=== PATIENT | female | born 1940 | race Caucasian/White ===

== ENCOUNTER → 2017-07-22 | Outpatient (CLI) | payer OTHER ==
[~2017-07-22] MED LIST: ALBU.5I INH; ALUM5LIQ PO; BISA10SU8 PR; CALC1TAB12 PO; DOCU1CAP39 PO; FENT25DI TD; FLEX10TA OR; HYDR-4197 PO; METO10TA PO; MILKSUS5 PO; MULTTAB67 PO; OXYB5TAB33 PO; PROT40TA PO; RED600TA PO; ZOLP10TA3 PO
== END ==
LOC: CPRE 11:21
PROVIDERS: ATTEND Orthopaedic Surgery Orthopaedic Surgery of the Spine
DX: M17.11 Unilateral primary osteoarthritis, right knee (principal)

== ENCOUNTER 2018-10-17 06:19 | Inpatient (IN) ==
[2018-10-17] MEDS ORDERED: Sodium Chlor 0.9% Inj 500 ML IV.CONT ONE (07:30)
[2018-10-17] MEDS ORDERED: Chlorhexidine 4% Topical 120 APPLIC/120 ML Bottle TOPICAL SCH (07:30)
[2018-10-17] MEDS ORDERED: Metoprolol Tartrate 25 MG Tablet PO ONE (07:30)
[2018-10-17] MEDS ORDERED: Chlorhexidine Gluconate 2% 1 Pack (2 Cloths) TOPICAL ONE (07:30)
[2018-10-17] MEDS ORDERED: SODIUM CHLOR 0.9% IV.SIG SCH (08:00)
[2018-10-17] MEDS ORDERED: Sodium Chlor 0.9% Inj 40 ML, Bupivacaine Liposo PF 1.3% Inj 20 ML, Bupivacaine/Epi PF 0... P-ARTICULR SCH ×3 (08:00)
[2018-10-17] MEDS ORDERED: ceFAZolin 2 GM Premix Inj 2 GM/50 ML PIGGYBACK IV.SIG SCH (08:00)
[2018-10-17] MEDS ORDERED: TRANEXAMIC ACID IV.SIG SCH (08:00)
[2018-10-17] MEDS ORDERED: Vancomycin Inj 1,000 MG in Sodium Chlor 0.9% Inj 250 ML IV.SIG SCH (08:00)
[2018-10-17] MEDS ORDERED: Bupivacaine 0.5% Inj 50 ML MDV Vial ONE (08:09)
[2018-10-17] MEDS ORDERED: Propofol Inj 500 MG/50 ML Vial ONE (08:26)
[2018-10-17] MEDS ORDERED: Morphine Inj 4 MG/ML Vial IV.PUSH PRN (09:40)
[2018-10-17] MEDS ORDERED: Bisacodyl 10 MG Supp RECTAL PRN (09:40)
[2018-10-17] MEDS ORDERED: Post-op Orders (for Pharmacy) OTHER STA (09:40)
--- NOTE | 2018-10-17 11:37 | P.OP ---
- Preoperative Diagnosis (1) Osteoarthritis of right knee (2) Valgus deformity, not elsewhere classified, right knee - Postoperative Diagnosis (1) Osteoarthritis of right knee (2) Valgus deformity, not elsewhere classified, right knee Date of procedure: 10/17/18 Procedure: Right total knee arthroplasty, posterior stabilized Anesthesia: regional, local, spinal Surgeon: Derrick Astudillo MD Spa Receptionist: Jessica Schaefer PA-C Operation and Findings: EBL: 50 cc INDICATION: This patient presents with long-standing arthritis of the knee. Attachment record documents conservative measures. The patient now presents for surgical treatment. NOTE: Jessica Schaefer PA-C was present for the entire surgical procedure as my paraprofessional education assistant. In my medical opinion her skill and care was necessary for proper management of this patient. TOURNIQUET TIME: 75 minutes COMPANY: [employer] FEMUR: Size 6, posterior stabilized TIBIA: Size 4, fixed-bearing PATELLA: 35 mm POLYETHYLENE INSERT: 11 mm, size 4 PROCEDURE: This patient was brought the operating room and anesthetized in the supine position. The patient was positioned supine on the table. The tourniquet was placed about the thigh, and the leg was scrubbed with alcohol followed by Hibiclens followed by ChloraPrep and draped sterilely. A timeout was done, and antibiotics were given. After exsanguination the tourniquet was inflated to 250 mmHg. An anterior incision was made and a median parapatellar arthrotomy was performed. The patella was released laterally and subluxed allowing freehand cut of the patella which was then sized. A metal cap was placed over the exposed patellar surface for protection. A check pilot hole was placed in the distal femur allowing a 4 valgus cut removing 11 mm from the distal femur. Anterior posterior and chamfer cuts were made. We needed to downsize the femur from a 726. We translated the femoral component anteriorly 3 mm. Some of this was because we removed 11 from the distal femur because of the valgus deformity of the distal femur. That allowed 1 mm from the lateral side. The posterior stabilize osteotomy was made. The attention was directed to the tibia. Retractors were positioned. The external alignment guide was used allowing the lateral tibia to be used as referencing guide and cut utilizing an oscillating saw taking care to avoid any injury to the surrounding soft tissues. This was sized properly. Trial reduction showed that the insert fit nicely. The patient had range of motion extension 0 flexion 125. A medial release was not necessary. The bony surfaces prepared. On the back table 2 packets of methylmethacrylate were mixed. The components were cemented. Excess cement was removed. The tourniquet let down and hemostasis was controlled. The final plastic insert was inserted. Range of motion was the same as previously noted. A drain was brought through a separate stab incision. The arthrotomy was repaired with interrupted #1 Vicryl suture, subcutaneous tissue 2-0 Vicryl suture and skin with metallic shima A sterile dressing was applied. Sponge counts, needle counts and instrument counts were all correct. The patient tolerated procedure well and was taken to recovery in satisfactory condition. FINDINGS: There was a hypoplastic lateral femoral condyle. The final components fit very nicely. The range of motion was excellent. There is no instability.
--- NOTE | 2018-10-17 11:45 | P.DCO ---
- Physical Therapy Physical Therapy: Gait training Knee: Total knee, Protocol: Right, Full weight bearing Canvas Knee Splint: Other (At nighttime for 4 weeks) Right Lower Extremity Weight Bearing: Weight bearing as tolerated Right Lower Extremity Range of Motion: Active ROM - Case Management Consult Case Management Consult-Home Health: Yes - Certification Need for Home Health services: I have seen patient Tammy Butler on 10/17/18. My clinical findings support the need for the requested home health care services because: Need for Home Health Services: High risk of falls Homebound Certification: I certify that my clinical findings support that this patient is homebound because: Homebound Certification: Unsteady gait/balance
--- NOTE | 2018-10-17 13:47 | XR ---
EXAM DATE: 10/17/2018 1:34 PM EST AGE/SEX: 78 years / Female INDICATIONS: Post op right knee surgery. CLINICAL DATA: This is the patient's initial encounter. Patient reports that signs and symptoms have been present for 1 day and indicates a pain score of 0/10. MEDICAL/SURGICAL HISTORY: None. None. COMPARISON: No prior exams available for comparison. FINDINGS: AP and lateral views of the right knee following recent total knee arthroplasty demonstrate cemented metallic hardware at the distal femur and proximal tibia with radiolucent patellar component. There i s soft tissue air, as expected. No significant joint effusion is identified. There is no fracture or dislocation. Skin shima are present anteriorly. No soft tissue abnormality is identified. CONCLUSION: Expected changes following recent right total knee arthroplasty. Electronically signed by: Allen Aponte MD Board Certified Radiologist 10/17/2018 1:46 PM EST
[2018-10-17] MEDS: ceFAZolin Inj 1 GM in Sodium Chlor 0.9% Inj 100 ML IV.SIG SCH ×2 (15:41→21:04)
[2018-10-17] MEDS ORDERED: Temazepam 15 MG Capsule PO PRN (21:00)
[2018-10-17] MEDS: Senna/Docusate Sodium 8.6/50 MG Tablet PO SCH (21:04)
[2018-10-17] MEDS: Multivitamin/Minerals Therapeutic Tablet PO SCH (21:04)
--- NOTE | 2018-10-18 00:48 | ECG ---
Date Performed: 10/17/2018 Time Performed: 07:23:30 PTAGE: 78 years EKG: Sinus rhythm WITH BASELINE ARTIFACT MINIMAL ST DEPRESSION ABNORMAL RHYTHM ECG NO PREVIOUS TRACING DOCTOR: Duncan Zamudio Interpretating Date/Time 10/18/2018 00:46:14
[2018-10-18] MEDS: ceFAZolin Inj 1 GM in Sodium Chlor 0.9% Inj 100 ML IV.SIG SCH (04:03)
[2018-10-18 05:30] LABS: Hematocrit 35.9 % (35.0-46.0); Hemoglobin 12.2 gm/dL (11.6-15.3)
[2018-10-18] MEDS: Senna/Docusate Sodium 8.6/50 MG Tablet PO SCH (08:01)
[2018-10-18] MEDS: Multivitamin/Minerals Therapeutic Tablet PO SCH (08:01)
[2018-10-18 08:03] VITALS: RESP 18
--- NOTE | 2018-10-18 12:56 | P.PNOP ---
Subjective Interval history: Doing well. Knee pain moderately controlled. The initial block 'was great' but then her pain increased this morning. NO new complaints. Questions about her knee dressings and discharge. Physical Exam Vital signs: Vital Signs 10/17/18 13:27 10/17/18 13:42 10/17/18 13:47 Temperature 97.5 F L 97.5 F L Pulse Rate 69 67 Respiratory Rate 20 18 Blood Pressure 113/55 L 130/63 Pulse Oximetry 94 L 95 10/17/18 14:34 10/17/18 16:00 10/17/18 16:29 Temperature 97.1 F L Pulse Rate 72 83 Respiratory Rate 18 20 18 Blood Pressure 126/60 124/59 L Pulse Oximetry 96 93 L 10/17/18 20:00 10/17/18 22:55 10/18/18 01:00 Temperature 97.6 F 97.1 F L Pulse Rate 81 73 Respiratory Rate 16 16 16 Blood Pressure 114/56 L 112/55 L Pulse Oximetry 93 L 94 L 10/18/18 04:00 10/18/18 08:02 Temperature 97.9 F Pulse Rate 64 Respiratory Rate 16 18 Blood Pressure 116/58 L Pulse Oximetry 92 L Intake & Output 10/17/18 10/18/18 10/18/18 18:59 06:59 18:59 Intake Total 1706.77 / 1706.77 1640 / 1640 Output Total 200 / 200 Balance 1506.77 / 1506.77 1640 / 1640 Weight 67.715 kg 67.7 kg Intake: IV 506.77 / 506.77 1100 / 1100 LR 1000 mL Inj 1,000 ML @ 80 1000 / 1000 mls/hr IV.CONT .[id number] [facility] Rx# :[id number] Cyklokapron Inj 677 MG In NS 106.77 / 106.77 Inj 100 ML @ 200 mls/hr IV.SIG JUDICIAL LAW CLERK [facility] Rx#:[id number] Vancomycin Inj 1,000 MG In NS 250 / 250 Inj 250 ML @ 250 mls/hr IV.SIG JUDICIAL LAW CLERK [facility] Rx#:[id number] Ancef 2 GM Premix Inj 2 gm In 50 / 50 50 ml @ 100 mls/hr IV.SIG JUDICIAL LAW CLERK [facility] Rx#:[id number] Ancef Inj 1 GM In NS Inj 100 ML 100 / 100 100 / 100 @ 200 mls/hr IV.SIG Q6H [facility] Rx #:[id number] Oral 200 / 200 540 / 540 Anesthesia Amount 1000 / 1000 Output: Urine 150 / 150 Estimated Blood Loss 50 / 50 Other: # Voids 1 2 Date of Last Bowel Movement 10/16/18 10/16/18 10/16/18 # Bowel Movements 0 Weight On Admission 67.7 kg Narrative: Sitting up in bed NAD RLE Knee dressing reapplied, no drainage, mild swelling, no erythema +motor at, +sens, +nvi Negative homans - Constitutional no acute distress Results - Labs CBC & Chem 7: 10/18/18 04:01 Laboratory Results - last 24 hr 10/18/18 04:01 Hgb 12.2 Hct 35.9 - Imaging Impressions Knee X-Ray 10/17/18 09:40 CONCLUSION: Expected changes following recent right total knee arthroplasty. - Procedures Right total knee arthroplasty Assessment and Plan - Ortho Post Op Day # 1 - Assessment and Plan pod#1 s/p R TKA Doing well. Pain fairly well controlled. Ok to d/c home w [facility] after PT today. Optifoam dressing applied. No drainage. Do not remove. PO pain meds as needed. ASA 81mg bid PT - WBAT RLE. TKA protocol. CKS at night. F/U in 2 weeks at [facility] as scheduled.
--- NOTE | 2018-10-18 12:56 | P.DS ---
Date of admission: 10/17/18 06:19 Primary care physician: Catalina Mae Attending physician on discharge: Derrick Astudillo Anticipated date of discharge: 10/18/18 DS: Medications - Discharge Medications Prescriptions: aspirin 81 mg PO BID 30 Days #60 tab hydrocodone-acetaminophen 1 tab PO Q4H PRN #42 tab PRN Reason: Acute Pain DS: Summary - Time Spent with Patient Total time spent providing and/or coordinating discharge services: - Quality: VTE Deep Vein Thrombosis/Pulmonary Embolism Present on Admission: No Exam Vital signs: Vital Signs 10/17/18 13:27 10/17/18 13:42 10/17/18 13:47 Temperature 97.5 F L 97.5 F L Pulse Rate 69 67 Respiratory Rate 20 18 Blood Pressure 113/55 L 130/63 Pulse Oximetry 94 L 95 10/17/18 14:34 10/17/18 16:00 10/17/18 16:29 Temperature 97.1 F L Pulse Rate 72 83 Respiratory Rate 18 20 18 Blood Pressure 126/60 124/59 L Pulse Oximetry 96 93 L 10/17/18 20:00 10/17/18 22:55 10/18/18 01:00 Temperature 97.6 F 97.1 F L Pulse Rate 81 73 Respiratory Rate 16 16 16 Blood Pressure 114/56 L 112/55 L Pulse Oximetry 93 L 94 L 10/18/18 04:00 10/18/18 08:02 Temperature 97.9 F Pulse Rate 64 Respiratory Rate 16 18 Blood Pressure 116/58 L Pulse Oximetry 92 L Intake & Output 10/17/18 10/18/18 10/18/18 18:59 06:59 18:59 Intake Total 1706.77 / 1706.77 1640 / 1640 Output Total 200 / 200 Balance 1506.77 / 1506.77 1640 / 1640 Weight 67.715 kg 67.7 kg Intake: IV 506.77 / 506.77 1100 / 1100 LR 1000 mL Inj 1,000 ML @ 80 1000 / 1000 mls/hr IV.CONT .[id number] [facility] Rx# :[id number] Cyklokapron Inj 677 MG In NS 106.77 / 106.77 Inj 100 ML @ 200 mls/hr IV.SIG AUDIO VISUAL EQUIPMENT RENTAL CLERK [facility] Rx#:[id number] Vancomycin Inj 1,000 MG In NS 250 / 250 Inj 250 ML @ 250 mls/hr IV.SIG AUDIO VISUAL EQUIPMENT RENTAL CLERK [facility] Rx#:[id number] Ancef 2 GM Premix Inj 2 gm In 50 / 50 50 ml @ 100 mls/hr IV.SIG AUDIO VISUAL EQUIPMENT RENTAL CLERK [facility] Rx#:[id number] Ancef Inj 1 GM In NS Inj 100 ML 100 / 100 100 / 100 @ 200 mls/hr IV.SIG Q6H [facility] Rx #:[id number] Oral 200 / 200 540 / 540 Anesthesia Amount 1000 / 1000 Output: Urine 150 / 150 Estimated Blood Loss 50 / 50 Other: # Voids 1 2 Date of Last Bowel Movement 10/16/18 10/16/18 10/16/18 # Bowel Movements 0 Weight On Admission 67.7 kg Results Procedures completed during hospitalization: Right total knee arthroplasty Labs on day of discharge: Labs from last 24 hours 10/18/18 04:01 Hgb 12.2 Hct 35.9 - Impressions ITS Impressions Knee X-Ray 10/17/18 09:40 CONCLUSION: Expected changes following recent right total knee arthroplasty. Discharge Plan - Discharge Disposition Patient Disposition: W/Home Health Service - Discharge Condition Condition: Good - Discharge Order Discharge Orders: Discharge Order (Routine); Ordered 10/17/18 Ordered By: Derrick Astudillo - Physicians Team Primary Care Provider: Catalina Mae Attending Provider: Derrick Astudillo - Rxs /Orders / Referrals /Forms Prescriptions: New aspirin 81 mg Tablet,Chewable 81 mg PO BID 30 Days Qty: 60 RF: 0 hydrocodone-acetaminophen 10-325 mg Tablet 1 tab PO Q4H PRN (Reason: Acute Pain) Qty: 42 RF: 0 Continue calcium carbonate-vitamin D3 [Calcium 600 + D(3)] 600 mg calcium- 200 unit Capsule 1 cap PO DAILY [id number]-vit K [Adults Multivitamin] 18 mg iron-400 mcg-25 mcg Tablet 1 tab PO DAILY Ambulatory Orders / Order Sets / DME: Adjustable Commode 3-in-1 (1 each) (Routine) Location: Determined by Patient Ordered By: Derrick Astudillo Walker With Front Wheels (1 each) (Routine) Location: Determined by Patient Ordered By: Derrick Astudillo Referrals: Yuliet Brunner PA [Physician Manager Flight] - See Instructions ( Your appointment has been scheduled for 11/02/18 at 9:45 AM. If you cannot make this appointment, please call the office to reschedule ) Catalina Mae MD [Primary Care Provider] - See Instructions - Discharge Instructions Patient Printed Instructions: Hydrocodone/Acetaminophen (By mouth), Aspirin ( By mouth), How to Choose and Use a Walker (GEN), Knee Replacement (DC) - Post Discharge Care Plan Care Plan Goals: Discharge Care Plan Goals for Total Knee Replacement You have undergone knee replacement surgery. Your doctor replaced your painful joint with an artificial joint to relieve pain and restore movement. Here are some goals to help you heal well. Directions to Meet your Goals: 1. Activity & Exercises: * Take pain medicine as directed by your doctor. * Sit in chairs with arms. The arms make it easier for you to stand up or sit down. * Dont sit for more than 30 to 45 minutes at one time. * Nap if you are tired, but dont stay in bed all day. * Sleep with a pillow under your ankle, not your knee. Be sure to change the position of your leg during the night. * Wear the support stockings you were given in the hospital as directed by your surgeon. 2. Prevent Falls/Injury: The mendiola to successful recovery is movement with walking and exercising your knee as directed by your doctor. * Arrange your household to keep the items you need handy. Keep everything else out of the way. * Remove items that may cause you to fall, such as throw rugs and electrical cords. * Use nonslip bath mats, grab bars, an elevated toilet seat, and a shower chair in your bathroom * Sit on a shower stool or chair when you shower to keep from falling. * Until your balance, flexibility, and strength improve, use a cane, crutches, a walker, handrails, or someone to help you. * Keep your hands free by using a backpack, analia pack, apron, or pockets to carry things * Walk up and down stairs with support. Try one step at a time. Use the railing if possible. * Dont drive until your doctor says its OK. * Dont drive while you are taking opioid pain medicine. 3. Precautions: * Prevent infection. Any infection will need to be treated immediately. Call your doctor right away if you think you might have an infection. * Tell your dentist that you have an artificial joint and take antibiotics as prescribed before any dental work. * Tell all your healthcare providers about your artificial joint before any medical procedure. * Maintain a healthy weight. Get help to lose any extra pounds. Added body weight puts stress on the knee. * Your medications may include blood-thinning medicine to prevent blood clots or antibiotics to prevent infection-prevent any falls or cuts 4. Incision Care: * Prevent infection by washing your hands often. If an infection occurs, it will need to be treated right away. * Call your doctor right away if you think you may have an infection. Symptoms include a fever or an incision that leaks white, green, or yellow fluid. * Don't soak your incision in water until your doctor says its OK. This means no hot tubs, bathtubs, or swimming pools. * Follow your doctor's instructions for changing the dressing. * Dont rub the incision, or apply creams or lotions to it. * If you notice any redness or drainage around the bandage site, contact your surgeon's office immediately. 5. Follow-Up: Do Not miss your follow-up appointment. Keep up with all your appointments and yearly check ups When to call your doctor: Call your doctor right away if you have: Fever of 100.4F (38C) or higher, or as directed by your doctor Shaking chills Stiffness, or inability to move the knee Increased swelling in your leg Increased redness, tenderness, or swelling in or around the knee incision Drainage from the knee incision Increased knee pain Call 911: Call 911 right away if you have: Chest pain Shortness of breath Any pain or tenderness in your calf
[2018-10-18 15:21] VITALS: BP 105/52; PULSE 79; TEMP 97.3; O2SAT 97
== END 2018-10-18 15:36 | disposition home health service (06) | DRG 470 ==
LOC: HSDI 06:19 → N06 15:34
PROVIDERS: ADMIT Orthopaedic Surgery Orthopaedic Surgery of the Spine; ATTEND Orthopaedic Surgery Orthopaedic Surgery of the Spine
CPT/HCPCS: 73560; 85014; 85018; 86850; 86900; 86901; 93005; 94150; 97110; 97116; 97150; 97162; 97166; C1776; C9290; J0690; J2250; J2405; J2704; J3370; J7050; J7120; J8501; L1830